=== PATIENT | male | born 1955 | race Caucasian/White ===

== ENCOUNTER → 2024-05-29 11:01 | Outpatient (REF) | payer MEDICARE, OTHER, SELFPAY | LOC: PAVMRI 11:01 | PROVIDERS: ATTENDING PHYSICIAN Orthopaedic Surgery Hand Surgery; FAMILY PHYSICIAN Family Medicine | DX: S63.642A Sprain of metacarpophalangeal joint of left thumb, initial encounter (principal) | CPT/HCPCS: 73218 ==

== ENCOUNTER 2024-06-03 09:50 | Emergency (ER) | payer MEDICARE, OTHER, SELFPAY ==
[2024-06-03 09:57] VITALS: BP 148/92
--- NOTE | 2024-06-03 10:16 | ED.GENMED ---
History of Present Illness
General
Chief Complaint: Breathing Problem
Time Seen by Provider: 06/03/24 10:15
History of Present Illness
History of Present Illness:
HPI: Patient was sent here by PMD as he was found to have hypoxia at the office down to 89% at times. The patient had been treated for presumed pneumonia with Augmentin and prednisone but symptoms continue to worsen.
EXAM:
GENERAL: Well appearing in no distress however cough is recurrent. Room air sats are 95 to 97% especially after coughing and taking breath in. I have not seen any true hypoxia here.
HEENT: Moist oral mucosa
CARDIOVASCULAR: No murmurs, normal heart rate, regular rhythm, No chest wall tenderness
PULMONARY: No respiratory distress, but he does have some inspiratory wheeze which is occasional in the lower lung caceres.
ABDOMEN: Soft with no peritoneal signs, no tenderness
NEUROLOGIC: Excellent strength all extremities, no coordination deficits
PSYCHIATRIC: Appropriate mental status, normal insight and judgement
EXTREMITIES: Nontender, no edema, moves all extremities equally
SKIN: No rash, no lesions
TIME OF INITIAL ENCOUNTER: 10:30 AM
NUMBER AND COMPLEXITY OF PROBLEMS ADDRESSED AT THE ENCOUNTER
� Chronic conditions affecting care: Asthma
� Acute Exacerbation and/or Progression of Chronic Illness: This is an acute problem
� Differential Diagnosis includes: Acute exacerbation of asthma, pneumonia, reactive airway disease, viral syndrome
AMOUNT AND/OR COMPLEXITY OF DATA TO BE REVIEWED AND ANALYZED
� I performed an independent evaluation of and my interpretation is:
EKG:
CT:
X-rays: I personally reviewed chest x-ray and see consolidation at the left and retrocardiac abnormality on the lateral view consistent with pneumonia
Laboratory Studies: White count 18.1, chemistries unremarkable, BNP 265
Other:
� Review of other/old records: I reviewed records. The patient had colonoscopies in 2017, 2019, 2022
� Clinical information was obtained by an independent historian: I reviewed the notes sent from Dr. Gato anderson [facility] indicating the patient has a history of asthma and was presumed to have pneumonia and has
been on Augmentin with prednisone and has been having worsening symptoms and was found to be hypoxic at the office.
� Prescriptions/Medications Considered but not given: Offered and considered IV steroids however the patient prefers to hold off at this time
� Further testing considered but not performed:
RISK OF COMPLICATIONS AND/OR MORBIDITY OR MORTALITY OF PATIENT MANAGEMENT
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
� Discussion with other providers: I discussed with Dr. Alamo who recommends, since we are going to discharge the patient, a quinolone. I also briefly spoke to Dr. Singh, radiologist.
� Escalation of care including admission/observation vs risk of discharge considered: The patient is given DuoNebs and IV magnesium. Chest x-ray obtained. White count is 18.1 likely at least partially elevated due to steroid
use recently. IV antibiotics were given here (Rocephin and azithromycin) and will discharge on oral Levaquin. The patient prefers outpatient management which I feel is reasonable. No evidence for heart failure.
Phy Exam
Physical Exam
Physical Exam:
See HPI
Scores
Heart Failure Risk
Heart Failure Risk Score: Not Applicable
Course
Orders/Labs/Results
Orders:
Orders
06/03/24 10:16
CR Chest - 2 Views Urgent
Comment:
Reason For Exam: sob asthma treated for pneumonia
06/03/24 10:26
Ipratropium/Albuterol Sulfate [Duoneb] 3 ml INH R NOW ONE
06/03/24 10:27
Magnesium Sulfate 2 Gram/50 ml [Magnesium Sulfate] 2 gram in 50 ml IV NOW
06/03/24 10:31
Basic Metabolic Panel Urgent
Complete Blood Count/With Diff Urgent
NT-proBNP Urgent
06/03/24 10:48
Azithromycin 500 mg/250 ml [Zithromax Infusion] 500 mg in 250 ml IV NOW
CefTRIAXone [Rocephin] 1,000 mg IV NOW STA
Abnormal Lab Results
06/03/24
10:31
WBC 18.1 H 10^3/uL
(4.8-10.8)
RBC 4.40 L 10^6/uL
(4.70-6.10)
MCH 32.5 H pg
(27.0-31.0)
Abs Immat Gran (auto) 0.6 H 10^3/uL
(0-0.05)
Absolute Neuts (auto) 16.2 H 10^3/uL
(1.4-6.5)
Absolute Lymphs (auto) 0.9 L 10^3/uL
(1.2-3.4)
Immature Gran % 3.4 H %
(0-0.5)
Neutrophils % 89.4 H %
(42.2-75.2)
Lymphocytes % 5.0 L %
(20.5-51.1)
Glucose 123 H mg/dl
(70-99)
06/03/24 10:31
06/03/24 10:31
Vital Signs
Initial and Last Documented VS:
Initial Vital Signs
Temp Pulse Resp BP Pulse Ox
98.3 F 67 20 148/92 94
06/03/24 09:57 06/03/24 09:57 06/03/24 09:57 06/03/24 09:57 06/03/24 09:57
Last Documented Vital Signs
Temp Pulse Resp BP Pulse Ox
98.3 F 85 30 131/88 94
06/03/24 09:57 06/03/24 12:15 06/03/24 12:15 06/03/24 12:00 06/03/24 12:15
*Critical Care Note
Total Time (30-74mins, 75-104mins- exclusive of procedures): Not Applicable
ED Attending Note
-
Portions of this chart may have been created with voice recognition software.� Occasional wrong word or��sound alike� substitutions may have occurred due to the inherent limitations of voice recognition software.
Discharge Plan
Departure
Patient Disposition: Home (Routine Discharge)
Date of Disposition: 06/03/24
Time of Disposition: 11:59
Patient with high blood pressure during this ER visit?: Yes
Discharge Problem:
Pneumonia
Prescriptions:
New
levofloxacin 500 mg tablet
500 mg PO DAILY 7 Days Qty: 7 0RF
No Action
amoxicillin-pot clavulanate [Augmentin] 875-125 mg Tablet
1 tab PO BID
prednisone 10 mg Tablets,Dose Pack
40 mg PO DIRECTED
Rx Instructions:
starting 06/01/24 take 40mg daily for 2 days then 30mg daily for 2 days then 20mg for 2 days then 10mg daily for 2 days then stop on 06/09/24
dextromethorphan-guaifenesin [Mucinex Fast-Max DM Max] 5-100 mg/5 mL Liquid
10 ml PO BIDPRN PRN (Reason: cough)
albuterol sulfate [ProAir HFA] 90 mcg/actuation Hfa Aerosol Inhaler
2 puff INHALATION R Q4HPRN PRN (Reason: sob)
Referrals:
Inocencio Swanson MD [Family Provider] -
Activity Restrictions/Additional Instructions:
Your white blood cell count is high at 18.1. This is partially contributed to by the use of steroids. We did give a dose of Rocephin and azithromycin. I spoke to an infectious disease specialist and she recommends a quinolone. I sent a
prescription for Levaquin to your pharmacy. I generally do not recommend taking steroids while on Levaquin due to the high risk of tendon rupture. Therefore I recommend against any further steroid.
Interventions
Interventions:
*Risk Screen - Suicide Last Done: 06/03/24 09:57
*General Assessment Last Done: 06/03/24 09:57
*Neglect/Abuse Screening Last Done: 06/03/24 09:57
ED- Fall Risk Assessment Last Done: 06/03/24 10:24
*ED COVID-19 Vaccine History Last Done: 06/03/24 09:57
*Nursing Disposition Last Done: 06/03/24 12:56
ED- Cardiac Assessment Last Done: 06/03/24 10:24
ED- Pulmonary Assessment Last Done: 06/03/24 10:24
Discharge Date and Time
Discharge Date/Time: 06/03/24 13:08
Print Language: RWANDAN
[2024-06-03 10:20] VITALS: BMI 24.7
[2024-06-03 10:23] VITALS: BP 142/93
[2024-06-03 10:24] VITALS: BP 142/93
[2024-06-03 10:40] LABS: % Basophils 0.4 % (0-2); % Immature Granulocytes 3.4 % (0-0.5); % Monocytes 1.8 % (1.7-9.3); % Neutrophils 89.4 % (42.2-75.2); Absolute Basophils 0.1 10^3/uL (0-0.2); Absolute Immature Granulocytes 0.6 10^3/uL (0-0.05); Absolute Lymphocytes 0.9 10^3/uL (1.2-3.4); Absolute Monocytes 0.3 10^3/uL (0.1-0.6); Absolute Neutrophils 16.2 10^3/uL (1.4-6.5); Hematocrit 40.4 % (39.0-52.0); Hemoglobin 14.3 g/dL (13.0-18.0); Mean Corp Hgb Conc. 35.4 g/dL (33.0-37.0); Mean Corpuscular Hgb 32.5 pg (27.0-31.0); Mean Corpuscular Volume 91.8 fL (80.0-94.0); Mean Platelet Volume 9.5 fL (7.4-10.4); Nucleated Red Blood Cells % 0 % (-); Platelet Count 400 10^3/uL (130-400); Red Cell Dist. Width 13.3 % (11.5-14.5); White Blood Cell Count 18.1 10^3/uL (4.8-10.8)
[2024-06-03] MEDS: MAGNESIUM SULFATE 50 IV (10:45)
[2024-06-03] MEDS: DUONEB 3 ML INH (10:45)
[2024-06-03 11:00] VITALS: BP 102/67
[2024-06-03 11:02] LABS: NT-proBNP 265 pg/ml
[2024-06-03 11:05] LABS: Blood Urea Nitrogen 13 mg/dl (9-20); Calcium 8.9 mg/dl (8.4-10.2); Carbon Dioxide 26 mmol/L (22-30); Chloride 105 mmol/L (98-107); Estimated Creatinine Clearance 121 ml/min; Glucose 123 mg/dl (70-99); Potassium 4.3 mmol/L (3.5-5.1); Sodium 136 mmol/L (135-145); eGFR > 60.00
[2024-06-03] MEDS: ROCEPHIN 1000 MG IV (11:22)
[2024-06-03] MEDS: ZITHROMAX INFUSION 250 IV (11:22)
[2024-06-03 12:00] VITALS: BP 131/88
== END 2024-06-03 13:08 | disposition home or self-care (01) ==
LOC: EMR 09:50
PROVIDERS: EMERGENCY PHYSICIAN Emergency Medicine; FAMILY PHYSICIAN Family Medicine
DX: R09.02 Hypoxemia (principal); J18.9 Pneumonia, unspecified organism
CPT/HCPCS: 99283; 94640; 96365; 96375; 71046; 80048; 83880; 85025

== ENCOUNTER 2024-06-05 22:50 | Observation (INO) | payer MEDICARE, OTHER, SELFPAY ==
[2024-06-05] VITALS (7 sets, daily range): BP systolic 130–160; BP diastolic 85–96; BMI 23.8; BMI 23.6
[2024-06-05] MEDS: NSS 500 IV (19:54)
[2024-06-05 20:01] LABS: % Basophils 0.5 % (0-2); % Eosinophils 0.1 % (0-6); % Immature Granulocytes 1.9 % (0-0.5); % Lymphocytes 10.9 % (20.5-51.1); % Neutrophils 82.6 % (42.2-75.2); Absolute Basophils 0.1 10^3/uL (0-0.2); Absolute Immature Granulocytes 0.3 10^3/uL (0-0.05); Absolute Lymphocytes 1.4 10^3/uL (1.2-3.4); Absolute Monocytes 0.5 10^3/uL (0.1-0.6); Hematocrit 41.3 % (39.0-52.0); Hemoglobin 14.8 g/dL (13.0-18.0); Mean Corp Hgb Conc. 35.8 g/dL (33.0-37.0); Mean Corpuscular Hgb 31.6 pg (27.0-31.0); Mean Corpuscular Volume 88.2 fL (80.0-94.0); Mean Platelet Volume 9.1 fL (7.4-10.4); Nucleated Red Blood Cells % 0 % (-); Platelet Count 469 10^3/uL (130-400); Red Blood Cell Count 4.68 10^6/uL (4.70-6.10); Red Cell Dist. Width 13.5 % (11.5-14.5); White Blood Cell Count 13.2 10^3/uL (4.8-10.8)
[2024-06-05 20:19] LABS: Blood Urea Nitrogen 10 mg/dl (9-20); Calcium 8.8 mg/dl (8.4-10.2); Carbon Dioxide 24 mmol/L (22-30); Chloride 103 mmol/L (98-107); Estimated Creatinine Clearance 121 ml/min; Glucose 102 mg/dl (70-99); Potassium 4.4 mmol/L (3.5-5.1); Sodium 134 mmol/L (135-145); eGFR > 60.00
--- NOTE | 2024-06-05 20:30 | ED.GENMED ---
Addendum entered and electronically signed by Jairon Valdes MD 06/05/24 21:35:
EKG normal sinus rhythm at 69. Left axis deviation. Nonspecific changes. No QT prolongation
Original Note:
History of Present Illness
General
Chief Complaint: Breathing Problem
Source: patient
Exam Limitations: none
Time Seen by Provider: 06/05/24 19:23
History of Present Illness
History of Present Illness:
68-year-old male returns with ongoing shortness of breath cough general fatigue weakness lightheadedness. Started getting ill about a week ago in [place]. Was placed on Augmentin initially. Changed to a quinolone. Pneumonia diagnosed by x-ray
here. Symptoms have not improved.
Past History
Past History
ED Past Medical History: Asthma
ED Past Surgical History: Appendectomy and Orthopedic
Review of Systems
Review of Systems
All Other Systems: Not applicable
Constitutional: Denies chills
Respiratory: Reports cough and trouble breathing
Cardiac: Denies chest pain or syncope
Phy Exam
Physical Exam
Physical Exam:
GENERAL: Alert and oriented in no apparent distress
EYE: Orbits normal.
NECK: Supple, no significant adenopathy.
ENT: Pharynx without erythema
CARDIAC: Regular rate and rhythm without any obvious murmurs.
LUNGS: Clear breath sounds,normal
ABDOMEN: Soft, without focal tenderness or distention
NEUROLOGICAL: Alert and oriented , grossly non-focal
SKIN: Warm and dry, no rash or lesion, no discoloration, skin intact.
MUSCULOSKELETAL: No edema,no deformity.Good color
PSYCH: Normal and appropriate interaction.
Scores
Heart Failure Risk
Heart Failure Risk Score: Not Applicable
Course
Orders/Labs/Results
Orders:
Orders
06/05/24 19:39
CT Chest Pe Study Urgent
Comment:
Reason For Exam: Short of breath.
Cardiac Monitoring- Treatment ONCE
IV Insert/Care/Rem.- Treatment PRN
0.9% Sodium Chloride 500 ml [Nss] 500 ml IV BOLUS
Pulse Ox/cont/shift [RESP] Stat
Quantity: 1
06/05/24 19:52
Basic Metabolic Panel Urgent
Complete Blood Count/With Diff Urgent
Abnormal Lab Results
06/05/24
19:52
WBC 13.2 H 10^3/uL
(4.8-10.8)
RBC 4.68 L 10^6/uL
(4.70-6.10)
MCH 31.6 H pg
(27.0-31.0)
Plt Count 469 H 10^3/uL
(130-400)
Abs Immat Gran (auto) 0.3 H 10^3/uL
(0-0.05)
Absolute Neuts (auto) 11.0 H 10^3/uL
(1.4-6.5)
Immature Gran % 1.9 H %
(0-0.5)
Neutrophils % 82.6 H %
(42.2-75.2)
Lymphocytes % 10.9 L %
(20.5-51.1)
Sodium 134 L mmol/L
(135-145)
Glucose 102 H mg/dl
(70-99)
06/05/24 19:52
06/05/24 19:52
Vital Signs
Initial and Last Documented VS:
Initial Vital Signs
Temp Pulse Resp BP Pulse Ox
99.2 F 77 18 160/96 96
06/05/24 18:36 06/05/24 18:36 06/05/24 18:36 06/05/24 18:36 06/05/24 18:36
Last Documented Vital Signs
Temp Pulse Resp BP Pulse Ox
98.2 F 72 21 130/85 95
06/05/24 20:00 06/05/24 20:00 06/05/24 20:00 06/05/24 20:00 06/05/24 20:00
MDM/Problems Addressed
Differential Diagnosis Includes:
Concern mostly for a unresolved pneumonia. However with the long trip and lack of resolution with at least entertain atypical pulmonary emboli. CT scan pending.
*Radiology
Radiology exam reviewed: radiology read reviewed (Moderate bibasilar and lingular and mild left upper lobe pneumonia)
*Pulse Oximetry
Patient hypoxic: no
*Critical Care Note
Total Time (30-74mins, 75-104mins- exclusive of procedures): Not Applicable
Data Reviewed
Review of Other/Old Records Reveals: Labs, Records and Radiology Studies
Update Note
Update Note:
Patient on multiple outpatient regimens without improvement. Warrants inpatient management
ED Attending Note
-
Portions of this chart may have been created with voice recognition software.� Occasional wrong word or��sound alike� substitutions may have occurred due to the inherent limitations of voice recognition software.
Discharge Plan
Departure
Patient Disposition: Admit
Date of Disposition: 06/05/24
Time of Disposition: 21:18
Presentation/result/management discussed w/ accepting MD/DO: Hospitalist
Discharge Problem:
Persistent multilobar pneumonia, Failed outpatient management
Prescriptions:
No Action
albuterol sulfate [ProAir HFA] 90 mcg/actuation Hfa Aerosol Inhaler
2 puff INHALATION R Q4HPRN PRN (Reason: sob)
levofloxacin 500 mg tablet
500 mg PO DAILY 7 Days Qty: 7 0RF
Referrals:
Inocencio Swanson MD [Family Provider] -
Interventions
Interventions:
*Risk Screen - Suicide Last Done: 06/05/24 18:36
*General Assessment Last Done: 06/05/24 18:36
*Neglect/Abuse Screening Last Done: 06/05/24 18:36
ED- Fall Risk Assessment Last Done: 06/05/24 19:57
ED- Cardiac Assessment Last Done: 06/05/24 19:57
ED- Pulmonary Assessment Last Done: 06/05/24 19:57
Discharge Date and Time
Print Language: KYRGYZ
--- NOTE | 2024-06-05 21:27 | HPS.HSE ---
Family Physician
-
Family Physician: Inocencio Swanson
Chief Complaint
-
Cough, sore throat, headache x 13 days
History of Present Illness
68-year-old male with his Kerline at bedside who states they flew to [place] May 15 to May 26 to visit their children and grandchildren. His states she started getting sick with a headache, sore throat, cough approximately around May
16. And her was sick approximate around May 15 with the same symptoms. They state that their 1-year-old granddaughter had a runny nose with a cough was seen at urgent care and only had her ear checked. She was not checked for any viral
panel. Patient reports on May 27 upon returning home he was seen by PCP and placed on a 10-day course of Augmentin starting May 27. He states this did not improve his symptoms of cough, sore throat and headache. He then was placed on Levaquin 3
days ago. He states he was tested on the and on Saturday, June 01 and was COVID-negative. His also has persistent symptoms she is day 15. Patient denies blurred vision, chest pain, palpitations, shortness of breath, abdominal pain,
nausea, vomiting, diarrhea, urinary symptoms. He has past medical history of reported asthma he does not treat
Medical History
Past Medical History
Past Medical History: Reports Other
Additional Past Medical History:
Asthma�patient does not treat history of hospitalizations or intubations or use of inhaler
Past Surgical History: Reports Other
Additional Past Surgical History:
Appendectomy
Bilateral inguinal hernia repair
Right ankle repair
Right shoulder repair
Multiple knee arthroscopies
Social History
Tobacco: Non-smoker
Alcohol: Occasional
Drug: None
Personal:
Living: With Family ( Kerline)
Employment: Retired
Family History
Family History: Other (Mother age 75 [place] father prostate cancer)
Allergies / Home Medications
Allergies reflects when Allergies were last updated in [employer]
Home Medications with original date entered in [employer]
Allergy/Medication List:
Allergies
Allergy/AdvReac Type Severity Reaction Status Date / Time
meperidine HCl [From Demerol] Allergy Nausea / Verified 06/03/24 09:57
Vomiting
Home Medications
albuterol sulfate 90 mcg/actuation aerosol inhaler 2 puff inhalation R Q4HPRN PRN sob 06/03/24
levofloxacin 500 mg tablet 500 mg PO DAILY 7 days #7 tabs 06/03/24
Review of Systems
-
History Source: Patient and Family ( Kerline at bedside)
A 12 point ROS was completed and negative except as noted: Yes
Constitutional: Reports Chills; Denies Weight Loss, Fatigue or Night Sweats
EENT: Reports Sore Throat
Respiratory: Reports Cough (Productive clear in color); Denies Hemoptysis or Trouble Breathing
Cardiac: Denies Chest Pain, Diaphoresis, Palpitations or Syncope
Abdomen/GI: Denies Abdominal Pain, Nausea, Vomiting, Diarrhea, Constipated or Bloody Stools
: Denies Dysuria, Frequency, Flank Pain, Incontinence, Difficulty Voiding or Urgency
Musculoskeletal: Denies Joint Pain or Edema
Skin: Denies Itching or Rash
Neurological: Reports Headache; Denies Dizzy or Weakness
Endocrine: Reports No Symptoms
Hematologic/Lymphatic: Reports No Symptoms
Psych: Reports Calm
Physical Exam
Vital Signs
Vital Signs
Temp Pulse Resp BP Pulse Ox
98.2 F 72 18 150/89 95
06/05/24 20:00 06/05/24 21:15 06/05/24 21:15 06/05/24 21:07 06/05/24 21:15
Physical Exam
General: Comfortable and Conversant; No Pain, Fever or Chills
HEENT: NormoCephalic, Anicteric, Tracheostomy Collar, PERRLA, [place] Conjunctivae, No Ptosis and Neck Nontender (No nuchal rigidity)
Respiratory: Clear; No Wheezes, Rales or Rhonchi
Cardiac: S1/S2 and Regular Rhythm; No Murmur, Rub, Gallop or Peripheral Edema
Breast: Deferred by me
GI: Soft, Non Tender, Non Distended, Normal Bowel Sounds and No Hepatosplenomegaly
Genito-urinary: Deferred by me
Musculoskeletal: No Clubbing, No Cyanosis and No Edema
Skin: Warm and Dry; No Rash
Neuro: AO x 3, No Motor Deficits, Nonfocal/grossly intact, Cranial Nerves Intact and No Sensory Deficits; No Slurred Speech, Facial Droop or Tremors
Psych: Calm
Laboratory Results
-
06/05/24 19:52
06/05/24 19:52
Data Reviewed
-
CT Scan: Report Reviewed by me
Lab Data: Labs Reviewed by me
Impression/Plan
-
Impression/plan:
Admit to MedSurg
#Bibasilar/lingular/left upper lobe pneumonia concern for viral versus bacterial
WBC 13.2 with left shift down from 18.1 on 06/03/2024, afebrile, HR 72, 150/89
95% RA
Completed 10-day course of Augmentin 875 plus prednisone 40 mg x 2, 30 x 2, 20 x 2, 10 x 2 then stop date 06/09
-Completed Levaquin 500 mg x 3 doses so far
-Continue inhaler scheduled and as needed
-Check COVID swab, MRSA, RSV, strep, Legionella
-IV Rocephin, doxycycline 100 mg p.o. every 12 hours
-Tylenol as needed headache, Mucinex 600 twice daily cough, Cepacol lozenges
-Follow CBC, CMP
CT PE study:
No evidence of PE
Findings suggesting moderate bibasilar and lingular/mild left upper lobe pneumonia
#Asthma-reported
-Patient states he does not use his inhaler not even when he is sick
DVT prophylaxis
Subcu Lovenox
Full code
[2024-06-05] MEDS: ZITHROMAX INFUSION 250 IV (21:41)
[2024-06-05] MEDS: ROCEPHIN 1000 MG IV (21:41)
--- NOTE | 2024-06-05 21:45 | W.PN.UPDATE ---
Update Note
Progress Note Update
This is an addendum to the H&P written by Rhea Tang on 06/05/2024. Patient seen and examined independently with SNAP [employer].
68-year-old male past medical history of asthma presenting with ongoing shortness of breath, cough generalized fatigue treated with Augmentin and prednisone initially on 05/27 changed to Levaquin on 06/03 after pneumonia found on chest x-ray in the
emergency room. Multiple sick contacts including and granddaughter.
CT chest today shows findings suggesting moderate bibasilar and lingular and mild left upper lobe pneumonia. Likely viral pneumonia. Check COVID. Check sputum culture, strep antigen, RSV, Legionella antigen, MRSA. ceftriaxone/doxycycline.
[2024-06-05 22:06] LABS: COVID-19 Antigen Negative (Negative)
[2024-06-05] MEDS: TYLENOL 650 MG PO (23:42)
[2024-06-06 07:46] VITALS: BP 148/86
--- NOTE | 2024-06-06 08:32 | W.PN.HOSP.TC ---
Today's Communication/Plan
-
Continue Rocephin/Doxy
Consult pulmonology
Assessment / Plan
Assessment / Plan
HPI: 68-year-old male with his Kerline at bedside who states they flew to [place] May 15 to May 26 to visit their children and grandchildren. His states she started getting sick with a headache, sore throat, cough approximately around
May 19. And her was sick approximate around May 15 with the same symptoms. They state that their 1-year-old granddaughter had a runny nose with a cough was seen at urgent care and only had her ear checked. She was not checked for any
viral panel. Patient reports on May 27 upon returning home he was seen by PCP and placed on a 10-day course of Augmentin starting May 27. He states this did not improve his symptoms of cough, sore throat and headache. He then was placed on
Levaquin 3 days ago. He states he was tested on the and on Saturday, June 01 and was COVID-negative.
#Persistent dyspnea with activity
#Left upper lobe pneumonia on CT
Symptoms persist despite a course of Augmentin, and 3 days of Levaquin prior to admission
COVID-negative, RSV negative, strep/Legionella negative
Check procalcitonin, consult pulmonology, follow-up on sputum cultures
Continue Rocephin/doxycycline for now
#History of asthma
Has not needed his inhaler
DVT prophylaxis�subcu Lovenox
Full code
Total time spent to see the patient on the floor, examine the patient, review data and lab results, discuss treatment plan with patient, nursing staff around 35 minutes.
Physical Exam
General: No acute distress
HEENT: Normocephalic, Atraumatic, EOMI, MMM
Respiratory: Clear to Auscultation bilaterally
Cardiac: Normal S1/S2, Regular Rate and Rhythm
GI: Soft, Nontender, Nondistended, Normal Bowel Sounds
Extremities: No Clubbing, Cyanosis, or Edema
Neuro: Nonfocal/Grossly Intact
Psych: Calm, Cooperative
Derm: No Visible lesions
Anticipated Discharge: Within 24 hours
Subjective/Interval History
-
Date of Service: June 06, 2024
Patient reports continued dyspnea with activity. He continues to have a cough. No fever.
Objective Data
-
Labs:
Laboratory Results
06/06/24
06:52
WBC Pending
Hgb Pending
Hct Pending
Plt Count Pending
Sodium Pending
Potassium Pending
Chloride Pending
Carbon Dioxide Pending
BUN Pending
Creatinine Pending
Glucose Pending
Calcium Pending
Total Bilirubin Pending
AST Pending
ALT Pending
Alkaline Phosphatase Pending
Vital Signs:
Vital Signs
Temp Pulse Resp BP Pulse Ox
98.4 F 70 17 148/86 96
06/06/24 07:46 06/06/24 07:46 06/06/24 07:46 06/06/24 07:46 06/06/24 07:46
[2024-06-06] MEDS: VIBRAMYCIN 100 MG PO ×2 (08:57→21:05)
[2024-06-06 09:31] LABS: % Basophils 0.8 % (0-2); % Eosinophils 0.8 % (0-6); % Immature Granulocytes 2.3 % (0-0.5); % Lymphocytes 22.3 % (20.5-51.1); % Monocytes 5.6 % (1.7-9.3); % Neutrophils 68.2 % (42.2-75.2); Absolute Basophils 0.1 10^3/uL (0-0.2); Absolute Eosinophils 0.1 10^3/uL (0-0.7); Absolute Immature Granulocytes 0.2 10^3/uL (0-0.05); Absolute Lymphocytes 1.9 10^3/uL (1.2-3.4); Absolute Monocytes 0.5 10^3/uL (0.1-0.6); Absolute Neutrophils 5.7 10^3/uL (1.4-6.5); Hematocrit 40.6 % (39.0-52.0); Mean Corp Hgb Conc. 34.5 g/dL (33.0-37.0); Mean Corpuscular Hgb 31.7 pg (27.0-31.0); Mean Corpuscular Volume 91.9 fL (80.0-94.0); Mean Platelet Volume 9.5 fL (7.4-10.4); Nucleated Red Blood Cells % 0 % (-); Platelet Count 436 10^3/uL (130-400); Red Blood Cell Count 4.42 10^6/uL (4.70-6.10); Red Cell Dist. Width 13.4 % (11.5-14.5); White Blood Cell Count 8.3 10^3/uL (4.8-10.8)
[2024-06-06 09:35] LABS: ALT (SGPT) 49 U/L (0-50); AST (SGOT) 33 U/L (17-59); Albumin 3.1 g/dl (3.5-5.0); Alkaline Phosphatase 145 U/L (38-126); Blood Urea Nitrogen 13 mg/dl (9-20); Calcium 8.3 mg/dl (8.4-10.2); Carbon Dioxide 26 mmol/L (22-30); Chloride 103 mmol/L (98-107); Estimated Creatinine Clearance 105 ml/min; Glucose 84 mg/dl (70-99); Potassium 4.2 mmol/L (3.5-5.1); Sodium 137 mmol/L (135-145); Total Bilirubin 0.6 mg/dl (0.2-1.3); Total Protein 5.7 g/dl (6.3-8.2); eGFR > 60.00
[2024-06-06 10:19] VITALS: BP 135/91; BP 144/99; PULSE 75; O2SAT 98
[2024-06-06 10:23] VITALS: BP 144/99; PULSE 73; O2SAT 98
--- NOTE | 2024-06-06 10:33 | CON.PUL ---
Consultation
Consultation Request
Date/Time Consultation Requested: 06/06/2024 - 1013
Date/Time Consultation Performed: 06/06/2024 - 1104
Requesting Provider: Dr. Chan
Performing Provider: Dr. Curry
Reason for Consultation: Multifocal PNA
Medical History
-
Chief Complaint: Weakness, cough, dyspnea on exertion
History of Present Illness:
68-year-old male with a past medical history of asthma who presented with weakness, cough and dyspnea on exertion. He was recent diagnosed with pneumonia on 06/03/2024 when he came here to the ER and found to be hypoxic down to 89%. He had been
treated at that time for pneumonia with Augmentin and prednisone but symptoms worsened. CXR at that time showed left lower lobe consolidation, and his WBC was 18.1 with platelets 123 and he was afebrile and hemodynamically stable with saturation
94%. He was sent home with Levaquin for 7 days after giving Rocephin + azithromycin in the ER. When patient came back to the ER on 06/05, he remained afebrile at 99.2 �F, pulse rate 77, breathing at 18 breaths/min, BP 160/96 and saturating 96% on
room air. Labs showed leukocytosis to 13.2, platelet count 469, sodium 134, glucose 102 with negative RSV. CTA chest showed bibasilar, lingular, and left upper lobe pneumonia. He was given ceftriaxone, Zithromax, IVF with 500 cc bolus of NS 0.9%
and admitted to the hospitalist service. Pulmonary now consulted for additional management/recommendations.
When I saw the patient, he was on room air breathing comfortably with , Kerline, at bedside. Patient currently denies shortness of breath, still feeling lightheaded with walking. Coughing up thin secretions. Denies CP, CARTWRIGHT, abd pain,
N/V/D/C/f/c.
PMHx: History of asthma
PSHx: Appendectomy, bilateral inguinal hernia repair, right ankle repair, right shoulder repair, multiple knee arthroscopies
Past Medical History
Past Medical History: Other (Above as per HPI)
Past Surgical History: Other (Above as per HPI)
Social History
Tobacco: Non-smoker
Alcohol: Occasional
Drug: None
Personal:
Living: With Family
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
Family History
Family History: CAD (Mother: at age 75 of [place]) and Cancer (Father: History of prostate cancer)
Allergies / Home Medications
Allergies
Allergy/AdvReac Type Severity Reaction Status Date / Time
meperidine HCl [From Demerol] Allergy Nausea / Verified 06/03/24 09:57
Vomiting
Home Medications
�Medication �Instructions �Recorded �Confirmed �Last Taken �Type
albuterol sulfate 90 mcg/actuation 2 puff inhalation R Q4HPRN PRN sob 06/03/24 06/05/24 06/05/24 History
aerosol inhaler
levofloxacin 500 mg tablet 500 mg PO DAILY 7 days #7 tabs 06/03/24 06/05/24 06/05/24 Rx
Review of Systems
-
History Source: Patient
All other systems: Negative unless noted (12 point ROS performed and is negative unless mentioned above.)
Vitals / Labs / Diagnostic Testing
Vital Signs
Temp Pulse Resp BP Pulse Ox
98.4 F 70 17 148/86 96
06/06/24 07:46 06/06/24 07:46 06/06/24 07:46 06/06/24 07:46 06/06/24 07:46
Lab Data
06/06/24 06:52
06/06/24 06:52
Microbiology
06/05/24 22:02 Urine Legionella Urinary Antigen - Final
Negative for Legionella pneumophila Serogroup 1 antigen.
A negative result does not rule out the possiblity of
Legionella infection due to other serogroups or species of
Legionella. Clinical correlation is recommended.
06/05/24 22:02 Urine Streptococcus pneumoniae Antigen (M - Final
Negative for Streptococcus pneumoniae antigen.
A negative result does not exclude infection with
Streptococcus pneumoniae. Clinical correlation is
recommended.
06/05/24 22:05 Nasal Swab Respiratory Syncytial Virus Culture - Final
Negative for Respiratory Syncytial Virus.
A false negative result may be obtained with a specimen
collected early in the acute phase. If symptoms persist, a
new specimen should be tested.
Diagnostic Testing:
Physical Exam
-
HEENT: Normocephalic, Anicteric and Moist Mucous Membranes
Cardiovascular: S1/S2 and Peripheral Edema (Negative)
Respiratory: Wheeze (Negative), Rales (Bibasilar), Rhonchi (Left hemithorax) and Non-Labored Respirations
GI: Soft, Non Distended and Non Tender
Neurology: AO x 3 and Tremors (Negative)
Skin: Warm and Dry
General: Respiratory Distress (Negative), Comfortable, Chills (Negative) and Sweats (Negative)
Assessment
-
Assessment: 68-year-old male with PMhx of asthma who presented with weakness, cough and dyspnea on exertion. He was recent diagnosed with pneumonia on 06/03/2024 when he came here to the ER and found to be hypoxic down to 89%. He had been treated
at that time for pneumonia with Augmentin and prednisone but symptoms worsened. CXR at that time showed left lower lobe consolidation, and his WBC was 18.1 with platelets 123 and he was afebrile and hemodynamically stable with saturation 94%. He
was sent home with Levaquin for 7 days after giving Rocephin + azithromycin in the ER. When patient came back to the ER on 06/05, he remained afebrile at 99.2 �F, pulse rate 77, breathing at 18 breaths/min, BP 160/96 and saturating 96% on room air.
Labs showed leukocytosis to 13.2, platelet count 469, sodium 134, glucose 102 with negative RSV. CTA chest showed bibasilar, lingular, and left upper lobe pneumonia. He was given ceftriaxone, Zithromax, IVF with 500 cc bolus of NS 0.9% and
admitted to the hospitalist service. Pulmonary now consulted for additional management/recommendations.
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
Impression:
#Multifocal pneumonia/CAP with suspected preceding viral illness
#Cough + generalized weakness due to above
#Leukocytosis likely due to recent course of steroids � leukocytosis now resolved
#History of mild intermittent asthma
Plan:
- Suspect his cough is post-infectious and dyspnea on exertion with generalized weakness is due to continued symptoms of newly diagnosed multifocal pneumonia
- Continue with antibiotics and will treat for 7 days total since his current hospitalization
- Patient currently on doxycycline/ceftriaxone, both started 06/05/2024
- Supportive care with acetaminophen, antitussives as needed, Mucinex prn + prn nebulized bronchodilators
- If cough is bothersome then would start him on LABA/ICS until symptoms resolved -he currently says that his cough is not bothersome and he is not even short of breath, hence can hold off on starting maintenance inhaler at this time and reassess
daily
- Considering he is having nonsevere CAP, no current recommendation for steroids
- Maintain SpO2 >90-94% with supplemental O2 as needed
- Incentive spirometer encouraged
- Replete electrolytes with K>4, Mg>2
- Maintain euglycemia with goal BG >100 and <180
- DVT ppx
Pulmonary service will continue to follow along. I will arrange for outpatient follow-up. He needs to obtain repeat imaging with CT chest in about 6 weeks to follow-up pneumonia resolution.
Total time spent today was 55 minutes for this encounter. Time includes reviewing laboratory test/imaging results, reviewing pertinent medical records, obtaining and reviewing medical history, performing an appropriate exam, ordering medications,
tests and procedures. Time also includes documentation of this encounter, coordinating patient care and communicating with other healthcare professionals. Total time does not include separately billed tests performed on this date of service.
--- NOTE | 2024-06-06 11:00 | CM ---
CM following re: discharge planning.
Reviewed pt's chart, met with pt.
Pt is a 68 year old male, admitted with OBS status and primary dx of Bibasilar/lingular/left upper lobe pneumonia concern for viral versus bacterial. OBS status explained to the pt, pt expressed to me his disappointed and very unhappy feelings,
signed [facility] letter placed on chart, pt has a copy.
Pt reports he lives with spouse in a 2SH, 2 steps to enter, has 3 supportive children. Pt described himself as independent in all areas [employer]. No DME, VN or SNF history.
PCP: Inoc[facility] Sw[facility]
Pharmacy: [facility]
D/C plan: home with anticipated no needs. Family to transport at discharge.
CM will follow with discharge plan updates as hospitalization progresses
[2024-06-06 11:58] LABS: Procalcitonin < 0.05 ng/ml (0.0-0.25)
[2024-06-06] MEDS: ProAIR HFA INHALER 2 PUFF INH (15:19)
[2024-06-06 15:40] VITALS: BP 146/93
[2024-06-06] MEDS: LOVENOX 40 MG SC (17:20)
[2024-06-06] MEDS: ROCEPHIN 1000 MG IV (21:05)
[2024-06-06] MEDS: STERILE WATER FOR INJECTION 10 ML IV (21:06)
[2024-06-06 23:00] VITALS: BP 128/67
[2024-06-07 07:30] VITALS: BP 139/86
[2024-06-07] MEDS: VIBRAMYCIN 100 MG PO ×2 (08:38→19:40)
--- NOTE | 2024-06-07 08:39 | W.PN.HOSP.TC ---
Today's Communication/Plan
-
see bold
Assessment / Plan
Assessment / Plan
HPI: 68-year-old male with his Kerline at bedside who states they flew to [place] May 15 to May 26 to visit their children and grandchildren. His states she started getting sick with a headache, sore throat, cough approximately around
May 19. And her was sick approximate around May 15 with the same symptoms. They state that their 1-year-old granddaughter had a runny nose with a cough was seen at urgent care and only had her ear checked. She was not checked for any
viral panel. Patient reports on May 27 upon returning home he was seen by PCP and placed on a 10-day course of Augmentin starting May 27. He states this did not improve his symptoms of cough, sore throat and headache. He then was placed on
Levaquin 3 days ago. He states he was tested on the and on Saturday, June 01 and was COVID-negative.
#Persistent dyspnea with activity
#Left upper lobe pneumonia on CT
Was seen and discharged from the ER on 06/03, came back to the ER on 06/05
Symptoms persist despite a course of Augmentin, and 3 days of Levaquin prior to admission
COVID-negative, RSV negative, strep/Legionella negative. Procalcitonin negative
Appreciate pulmonology input, continue Rocephin/doxycycline day 3
Patient continues to be symptomatic, discussed with pulmonology who will assess today and offer steroids
#Lightheadedness with standing
Orthostatics negative
#History of asthma
Has not needed his inhaler
DVT prophylaxis�subcu Lovenox
Full code
Total time spent to see the patient on the floor, examine the patient, review data and lab results, discuss treatment plan with patient, nursing staff around 40 minutes.
Physical Exam
General: No acute distress
HEENT: Normocephalic, Atraumatic, EOMI, MMM
Respiratory: Clear to Auscultation bilaterally
Cardiac: Normal S1/S2, Regular Rate and Rhythm
GI: Soft, Nontender, Nondistended, Normal Bowel Sounds
Extremities: No Clubbing, Cyanosis, or Edema
Neuro: Nonfocal/Grossly Intact
Psych: Calm, Cooperative
Derm: No Visible lesions
Anticipated Discharge: Within 24 hours
Subjective/Interval History
-
Date of Service: June 07, 2024
Patient continues to have dyspnea with activity, lightheadedness with standing, cough, malaise. No fever.
Objective Data
-
Vital Signs:
Vital Signs
Temp Pulse Resp BP Pulse Ox
97.8 F 72 18 128/67 96
06/06/24 23:00 06/06/24 23:00 06/06/24 23:00 06/06/24 23:00 06/06/24 23:00
I&O
06/06/24 06/07/24 06/08/24
06:59 06:59 06:59
Intake Total 1740 / 1740
Balance 1740 / 1740
--- NOTE | 2024-06-07 09:24 | PTCARENOTE ---
pt aaox3. states no pain or sob. room air breath sounds clear.
[2024-06-07 10:07] VITALS: BP 115/79; BP 121/79; BP 127/75; PULSE 76; PULSE 78; PULSE 81
--- NOTE | 2024-06-07 11:27 | W.PN.PUL3 ---
Today's Communication / Plan
-
Start prednisone at 50 mg daily for suspected organizing pneumonia
Discharge home on 50 mg daily with PCP prophylaxis with Bactrim DS tab TIW
Outpatient follow-up with full PFTs and repeat imaging in about [address] chest without contrast
Consider LABA/ICS if cough is bothersome
I suspect he will be appropriate for discharge by tomorrow assuming blood glucose is not severely elevated and he feels improved
Pulmonary service will continue to follow along
Assessment
-
Assessment: 68-year-old male with PMhx of asthma who presented with weakness, cough and dyspnea on exertion. He was recent diagnosed with pneumonia on 06/03/2024 when he came here to the ER and found to be hypoxic down to 89%. He had been treated
at that time for pneumonia with Augmentin and prednisone but symptoms worsened. CXR at that time showed left lower lobe consolidation, and his WBC was 18.1 with platelets 123 and he was afebrile and hemodynamically stable with saturation 94%. He
was sent home with Levaquin for 7 days after giving Rocephin + azithromycin in the ER. When patient came back to the ER on 06/05, he remained afebrile at 99.2 �F, pulse rate 77, breathing at 18 breaths/min, BP 160/96 and saturating 96% on room air.
Labs showed leukocytosis to 13.2, platelet count 469, sodium 134, glucose 102 with negative RSV. CTA chest showed bibasilar, lingular, and left upper lobe pneumonia. He was given ceftriaxone, Zithromax, IVF with 500 cc bolus of NS 0.9% and
admitted to the hospitalist service. Pulmonary now consulted for additional management/recommendations.
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
Impression:
#Multifocal pneumonia/CAP with suspected preceding viral illness; unable to rule out organized pneumonia given patient continues to have FAN + malaise with procalcitonin <0.05
#Cough + generalized weakness due to above
#Leukocytosis likely due to recent course of steroids � leukocytosis now resolved as of 06/06/2024
#History of mild intermittent asthma
Plan:
- Considering that patient has been on antibiotics but with continued symptoms and with shortness of breath with activity and malaise despite being on antibiotics with negative procalcitonin, it is quite possible that he has organizing pneumonia.
This is further justified with patchy airspace consolidation/patchy groundglass opacities, with bronchial wall thickening and thick consolidation seen in the bases, which is quite often seen in [employer]ARE[employer]ODUCTION WORK[employer].
- I will start him on prednisone 50mg daily (IBW: 59.2 kg), and he should maintain this dose for several weeks (at least 3-4) before gradually transitioning down further to 0.25mcg/kg of ideal body weight with slow taper
- He will need PCP prophylaxis with bactrim 1 DS tab MWF while on steroids
- I originally had suspected his cough was post-infectious and dyspnea on exertion with generalized weakness was due to continued symptoms of newly diagnosed multifocal pneumonia
- I do not see harm in continuing antibiotics to treat for 7 days total since his current hospitalization
- Patient currently on doxycycline/ceftriaxone, both started 06/05/2024
- Supportive care with acetaminophen, antitussives as needed, Mucinex prn + prn nebulized bronchodilators
- If cough is bothersome then would start him on LABA/ICS until symptoms resolved -on 06/06 he said his cough is not bothersome and was not even short of breath, but as of today (06/07) he is more symptomatic; re-assess daily
- Maintain SpO2 >90-94% with supplemental O2 as needed
- Incentive spirometer encouraged
- Replete electrolytes with K>4, Mg>2
- Maintain euglycemia with goal BG >100 and <180
- DVT ppx
Pulmonary service will continue to follow along. I will arrange for outpatient follow-up. He needs to obtain repeat imaging with CT chest in about 6 weeks to follow-up pneumonia resolution.
Total time spent today was 35 minutes for this encounter. Time includes reviewing laboratory test/imaging results, reviewing pertinent medical records, obtaining and reviewing medical history, performing an appropriate exam, ordering medications,
tests and procedures. Time also includes documentation of this encounter, coordinating patient care and communicating with other healthcare professionals. Total time does not include separately billed tests performed on this date of service.
Subjective Data
-
Date of Service:
Date of Service: June 07, 2024
Chief Complaint: Pulmonary Follow Up
Subjective:
Patient seen and evaluated today at bedside. On room air breathing comfortably although had dizziness earlier today as well as shortness of breath and malaise. Patient's at bedside and all questions were answered. He currently denies chest
pain, headache, abdominal pain, fevers or chills.
Review of Systems
General: Other (Negative unless mentioned above)
Objective Data
Data Reviewed
Vital Signs / I&O / Oxygen:
Vital Signs
Temp Pulse Resp BP Pulse Ox
97.6 F 63 16 139/86 98
06/07/24 07:30 06/07/24 07:30 06/07/24 07:30 06/07/24 07:30 06/07/24 07:30
Intake and Output
06/06/24 06/07/24 06/08/24
06:59 06:59 06:59
Intake Total 1740 / 1740
Balance 1740 / 1740
SaO2 98
Physical Exam
General: Respiratory Distress (Negative) and Comfortable
HEENT: Normocephalic and Anicteric
Cardiovascular: S1-S2 and Peripheral Edema (Negative)
Respiratory: Wheeze (Negative), Crackles (Bibasilar), Rhonchi (Right hemithorax (RLL/RML >RUL) heard mainly upon expiration) and Non-Labored Respirations
GI: Soft, Non Distended, Non Tender and Normal Bowel Sounds
Neurology: AO x 3 and Tremors (Negative)
Skin: Warm, Dry and Jaundice (Negative)
Labs/Micro/Reports
Lab Data
06/06/24 06:52
06/06/24 06:52
Microbiology
06/06/24 06:26 Nose MRSA Screen - Final
No Methicillin Resistant Staphylococcus aureus isolated.
06/05/24 23:03 Sputum Respiratory Culture - Final
06/05/24 23:03 Sputum Gram Stain - Final
06/05/24 22:02 Urine Legionella Urinary Antigen - Final
Negative for Legionella pneumophila Serogroup 1 antigen.
A negative result does not rule out the possiblity of
Legionella infection due to other serogroups or species of
Legionella. Clinical correlation is recommended.
06/05/24 22:02 Urine Streptococcus pneumoniae Antigen (M - Final
Negative for Streptococcus pneumoniae antigen.
A negative result does not exclude infection with
Streptococcus pneumoniae. Clinical correlation is
recommended.
06/05/24 22:05 Nasal Swab Respiratory Syncytial Virus Culture - Final
Negative for Respiratory Syncytial Virus.
A false negative result may be obtained with a specimen
collected early in the acute phase. If symptoms persist, a
new specimen should be tested.
[2024-06-07] MEDS: ProAIR HFA INHALER 2 PUFF INH (13:34)
[2024-06-07] MEDS: TYLENOL 650 MG PO (14:41)
[2024-06-07 16:00] VITALS: BP 134/82
[2024-06-07] MEDS: LOVENOX 40 MG SC (16:56)
[2024-06-07] MEDS: SOLU-MEDROL PF 40 MG IV (19:35)
[2024-06-07] MEDS: STERILE WATER FOR INJECTION 10 ML IV (21:00)
[2024-06-07] MEDS: ROCEPHIN 1000 MG IV (21:00)
[2024-06-07 23:00] VITALS: BP 135/81
--- NOTE | 2024-06-08 06:37 | W.PN.PUL3 ---
Addendum entered and electronically signed by Mick Hamilton MD 06/08/24 07:50:
reviewed course. Concern for Cryptogenic pneumonia noted
Will continue will slow pred taper as o/p
decrease by 10 my every 5 days and see pulm pulmonary in 2-3 weeks
Original Note:
Today's Communication / Plan
-
Decrease steroids to 40 mg, slow taper as below
Consider transition to oral antibiotics
Ambulate, assess for home oxygen
Continue albuterol as needed
Will require outpatient pulmonary follow-up. Information left in chart
Disposition efforts
Assessment
-
Assessment: 68-year-old male with PMhx of asthma who presented with weakness, cough and dyspnea on exertion. He was recent diagnosed with pneumonia on 06/03/2024 when he came here to the ER and found to be hypoxic down to 89%. He had been treated
at that time for pneumonia with Augmentin and prednisone but symptoms worsened. CXR at that time showed left lower lobe consolidation, and his WBC was 18.1 with platelets 123 and he was afebrile and hemodynamically stable with saturation 94%. He
was sent home with Levaquin for 7 days after giving Rocephin + azithromycin in the ER. When patient came back to the ER on 06/05, he remained afebrile at 99.2 �F, pulse rate 77, breathing at 18 breaths/min, BP 160/96 and saturating 96% on room air.
Labs showed leukocytosis to 13.2, platelet count 469, sodium 134, glucose 102 with negative RSV. CTA chest showed bibasilar, lingular, and left upper lobe pneumonia. He was given ceftriaxone, Zithromax, IVF with 500 cc bolus of NS 0.9% and
admitted to the hospitalist service. Pulmonary now consulted for additional management/recommendations.
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
Impression:
#Multifocal pneumonia/CAP with suspected preceding viral illness; unable to rule out organized pneumonia given patient continues to have FAN + malaise with procalcitonin <0.05
#Cough + generalized weakness due to above
#Leukocytosis likely due to recent course of steroids � leukocytosis now resolved as of 06/06/2024
#History of mild intermittent asthma
Plan/recommendations
Patient appears to be improved objectively and subjectively
Currently on room air
Chest exam without rhonchi, minimal crackles at base
CT chest reviewed, bibasilar pneumonia. Chronicity unclear
Moving forward
Continue with prednisone, slow taper
Decrease to 40 mg a day
He is feeling much better this morning, chest exam appears to be improved
Would prefer faster taper off steroids. Decrease by 10 mg every 3 days until off
No need for Bactrim prophylaxis
Continue antibiotics for now
Okay to discontinue ceftriaxone at time of discharge, transition to doxycycline oral
Ambulate and assess home oxygen needs
This morning, patient denies any cough
Incentive spirometry, airway clearance
DVT ppx: Ambulate
Pulmonary service will continue to follow along. I will arrange for outpatient follow-up. He needs to obtain repeat imaging with CT chest in about 6 weeks to follow-up pneumonia resolution.
Disposition efforts
Subjective Data
-
Date of Service:
Date of Service: June 08, 2024
Chief Complaint: Pulmonary Follow Up
Subjective:
Patient is without complaints. Denies chest pain, shortness of breath, cough, nausea. Presently on room air
Objective Data
Data Reviewed
Vital Signs / I&O / Oxygen:
Vital Signs
Temp Pulse Resp BP Pulse Ox
98.9 F 65 18 135/81 96
06/07/24 23:00 06/07/24 23:00 06/07/24 23:00 06/07/24 23:00 06/07/24 23:00
Intake and Output
06/06/24 06/07/24 06/08/24
06:59 06:59 06:59
Intake Total 1740 / 1740 2550 / 2550
Balance 1740 / 1740 2550 / 2550
SaO2 96
Physical Exam
General: Comfortable
HEENT: Normocephalic and Anicteric
Cardiovascular: S1-S2, Regular Rhythm, Murmur (n) and Peripheral Edema (Negative)
Respiratory: Wheeze (Negative), Crackles (Minimal at base), Rhonchi (n), Non-Labored Respirations and Stridor (n)
GI: Soft, Non Distended, Non Tender and Normal Bowel Sounds
Neurology: Awake, Alert and No Motor Deficits (Able to sit up without assistance)
Skin: Warm, Dry, Cyanosis (n) and Rash (n)
Labs/Micro/Reports
Microbiology
06/06/24 15:46 Sputum - Induced Gram Stain - Preliminary
06/06/24 06:26 Nose MRSA Screen - Final
No Methicillin Resistant Staphylococcus aureus isolated.
06/05/24 23:03 Sputum Respiratory Culture - Final
06/05/24 23:03 Sputum Gram Stain - Final
06/05/24 22:02 Urine Legionella Urinary Antigen - Final
Negative for Legionella pneumophila Serogroup 1 antigen.
A negative result does not rule out the possiblity of
Legionella infection due to other serogroups or species of
Legionella. Clinical correlation is recommended.
06/05/24 22:02 Urine Streptococcus pneumoniae Antigen (M - Final
Negative for Streptococcus pneumoniae antigen.
A negative result does not exclude infection with
Streptococcus pneumoniae. Clinical correlation is
recommended.
06/05/24 22:05 Nasal Swab Respiratory Syncytial Virus Culture - Final
Negative for Respiratory Syncytial Virus.
A false negative result may be obtained with a specimen
collected early in the acute phase. If symptoms persist, a
new specimen should be tested.
[2024-06-08 07:30] VITALS: BP 140/84
[2024-06-08] MEDS: DELTASONE 40 MG PO (08:13)
[2024-06-08] MEDS: VIBRAMYCIN 100 MG PO (08:13)
[2024-06-08 10:02] LABS: Hematocrit 44.1 % (39.0-52.0); Hemoglobin 15.1 g/dL (13.0-18.0); Mean Corp Hgb Conc. 34.2 g/dL (33.0-37.0); Mean Corpuscular Hgb 31.4 pg (27.0-31.0); Mean Corpuscular Volume 91.7 fL (80.0-94.0); Mean Platelet Volume 9.2 fL (7.4-10.4); Platelet Count 499 10^3/uL (130-400); Red Blood Cell Count 4.81 10^6/uL (4.70-6.10); Red Cell Dist. Width 13.4 % (11.5-14.5); White Blood Cell Count 12.6 10^3/uL (4.8-10.8)
--- NOTE | 2024-06-08 11:08 | W.PN.HOSP.TC ---
Today's Communication/Plan
-
Discharge on oral antibiotics and prolonged prednisone taper
Outpatient pulmonology follow-up
Assessment / Plan
Assessment / Plan
#Cryptogenic organizing pneumonia
#Persistent dyspnea with activity
#Left upper lobe pneumonia on CT
-Was seen and discharged from the ER on 06/03, came back to the ER on 06/05
-Symptoms persist despite a course of Augmentin, and 3 days of Levaquin prior t
-Pulmonology suspecting DYE TANK TENDER/inflammatory pneumonia as etiology
-Was started on steroid with planned prolonged taper at discharge
-Symptomatically improved, on RA this morning and comfortable
-Plan to DC on oral antibiotics to complete 7 days
-Plan to DC on prednisone 40 mg, decrease 10 mg every 5 days
#Lightheadedness with standing
-Orthostatics negative
-May be related to deconditioning versus DYE TANK TENDER
#History of asthma
Has not needed his inhaler
DVT prophylaxis�subcu Lovenox
Full code
Anticipated Discharge: Today
Subjective/Interval History
-
Date of Service: June 08, 2024
No acute events. He was on room air, appeared comfortable, had no acute complaints today. States that he is ready to go home, questions about his medications at discharge which I answered. Family at the bedside.
Objective Data
-
Labs:
Laboratory Results
06/08/24
09:28
WBC 12.6 H
Hgb 15.1
Hct 44.1
Plt Count 499 H
Sodium Pending
Potassium Pending
Chloride Pending
Carbon Dioxide Pending
BUN Pending
Creatinine Pending
Glucose Pending
Calcium Pending
Total Bilirubin Pending
AST Pending
ALT Pending
Alkaline Phosphatase Pending
Vital Signs:
Vital Signs
Temp Pulse Resp BP Pulse Ox
97.8 F 61 20 140/84 99
06/08/24 07:30 06/08/24 07:30 06/08/24 07:30 06/08/24 07:30 06/08/24 07:30
I&O
06/07/24 06/08/24 06/09/24
06:59 06:59 06:59
Intake Total 1740 / 1740 2550 / 2550
Balance 1740 / 1740 2550 / 2550
Review of Systems
-
History Source: Patient
All other systems: Reviewed and negative
Constitutional: Reports No Symptoms
Respiratory: Reports No Symptoms
Cardiac: Reports No Symptoms
Abdomen/GI: Reports No Symptoms
Genitourinary: Reports No Symptoms
Musculoskeletal: Reports No Symptoms
Skin: Reports No Symptoms
Neuro: Reports No Symptoms
Physical Exam
-
General: No Apparent Distress, Comfortable and Conversant
HEENT: Normocephalic, Atraumatic, Moist Mucous Membranes and Anicteric
Respiratory: Clear to Auscultation and Non Labored Respirations; Negative Wheezes, Rales, Rhonchi, Crackles or Accessory Resp Muscle Use
Cardiac: Regular Rhythm and S1/S2; Negative Murmur, Rub, JVD or Gallop
GI: Soft, Nontender, Nondistended and Normal Bowel Sounds
Musculoskeletal: No Clubbing, No Cyanosis and No Edema
Skin: Warm and Dry; Negative Rash or Jaundice
Neuro: AO x 3, Nonfocal/Grossly Intact and Central Nerve's Intact
Data Reviewed
-
Diagnostic Radiology: Report Reviewed by me
Labs: Labs Reviewed by me
--- NOTE | 2024-06-08 11:14 | W.DCSUMMARY ---
Discharge Summary
Discharge Data
Date of Admission: 06/05/24
Date of Discharge: 06/08/24
-
Pending Results: No
Hospital Course
Presented with worsening shortness of breath on exertion. Was recently seen in ED for similar symptoms. Imaging demonstrated left upper lobe opacity concerning for pneumonia, seen at previous ED visit as well. Was treated with outpatient oral
antibiotics without response, transition to IV antibiotics on admission at 06/05/2024. Symptomatically did not improve, pulmonology evaluated and raised suspicion for cryptogenic organizing pneumonia due to radiographic findings and nonresponse to
antibiotics. He was started on steroids with improvement. Was plan to complete 7-day course of antibiotics with prolonged prednisone taper at discharge with pulmonology follow-up in 2 to 3 weeks
Discharge Plan
-
Patient Disposition: Home (Routine Discharge)
Discharge Diagnosis/Procedures: Cryptogenic Organizing Pneumonia
Condition: Good
Diet: No restrictions
Activity: As tolerated
Driving Restrictions: As prior to admission
Referrals:
Inocencio Swanson MD [Family Provider] -
Sohail Curry MD [Active] - in two to three weeks
(full PFTs on day of office visit
MERCHANDISE CLERK or Patricio )
Prescriptions:
New
doxycycline hyclate 100 mg Capsule
100 mg PO Q12 5 Days Qty: 10 0RF
cefdinir 300 mg capsule
300 mg PO Q12H 5 Days Qty: 10 0RF
prednisone 10 mg tablet
10 mg PO DIRECTED Qty: 60 0RF
Rx Instructions:
40 mg (4 tabs) x 5 days, then
30 mg (3 tabs) x 5 days, then
20 mg (2 tabs) x 5 days, then
10 mg (1 tab) x 5 days
Continued
albuterol sulfate 90 mcg/actuation Hfa Aerosol Inhaler
2 puff INHALATION R Q4HPRN PRN (Reason: sob)
Discontinued
levofloxacin 500 mg tablet
500 mg PO DAILY 7 Days Qty: 7 0RF
Discharge Orders:
Discharge Patient (As Directed); Ordered 06/08/24
Ordered By: Micah Matthews
Discharge Date and Time
Print Language: ARABIC
[2024-06-08 11:25] LABS: ALT (SGPT) 48 U/L (0-50); AST (SGOT) 26 U/L (17-59); Albumin 3.5 g/dl (3.5-5.0); Alkaline Phosphatase 127 U/L (38-126); Blood Urea Nitrogen 17 mg/dl (9-20); Calcium 9.3 mg/dl (8.4-10.2); Carbon Dioxide 31 mmol/L (22-30); Chloride 101 mmol/L (98-107); Estimated Creatinine Clearance 105 ml/min; Glucose 109 mg/dl (70-99); Magnesium 2.3 mg/dl (1.6-2.3); Phosphorus 4.1 mg/dl (2.5-4.5); Sodium 137 mmol/L (135-145); Total Bilirubin 0.6 mg/dl (0.2-1.3); Total Protein 6.2 g/dl (6.3-8.2); eGFR > 60.00
[2024-06-08 11:33] LABS: C-Reactive Protein < 5.00 mg/L (0.0-10.00)
[2024-06-08 15:00] VITALS: BP 139/81
--- NOTE | 2024-06-08 16:33 | W.PN.UPDATE ---
Update Note
Progress Note Update
Patient cannot recall details from this morning's visit. Requested to review again with pulmonary. Reviewed with him possibility of steroid responsive process. Reviewed possibility of cryptogenic organizing pneumonia as per Dr. Curry
assessment.
Okay for discharge today. Will continue with slow taper of steroids.
Prefer to see patient sooner during his taper rather than later in the setting of a prolonged taper to confirm he is moving the right direction
Recommended GERD therapy while on steroids
Hopefully we can avoid PJP prophylaxis but will reassess in the next few weeks
Will require follow-up imaging
Follow-up information left in chart. All questions answered
Okay for discharge. Reviewed with nursing as well
[2024-06-08 20:32] LABS: Hepatitis C Antibody Negative (Negative)
== END 2024-06-08 18:00 | disposition home or self-care (01) ==
LOC: 3 WEST ACU 22:50
PROVIDERS: Clinical Nurse Specialist Family Health; Family Medicine; ADMITTING PHYSICIAN Hospitalist; ATTENDING PHYSICIAN Internal Medicine; CONSULT PHYSICIAN Internal Medicine Critical Care Medicine; EMERGENCY PHYSICIAN Emergency Medicine; FAMILY PHYSICIAN Family Medicine
DX: J84.116 Cryptogenic organizing pneumonia (principal); R06.02 Shortness of breath; J45.20 Mild intermittent asthma, uncomplicated; R05.9 Cough, unspecified; R53.83 Other fatigue; R53.1 Weakness; D72.829 Elevated white blood cell count, unspecified; R06.09 Other forms of dyspnea; R09.02 Hypoxemia; R51.9 Headache, unspecified; R42 Dizziness and giddiness; Z88.5 Allergy status to narcotic agent; Z90.49 Acquired absence of other specified parts of digestive tract; Z82.49 Family history of ischemic heart disease and other diseases of the circulatory system; Z80.42 Family history of malignant neoplasm of prostate; Z79.52 Long term (current) use of systemic steroids; Z11.52 Encounter for screening for COVID-19
CPT/HCPCS: 71275; 80048; 80053; 83735; 84100; 84145; 85025; 85027; 86140; 86803; 87070; 87205; 87449; 87807; 87811; 87899; 93005; 94640; 96365; 97161; 97165; 99285; Q9967

== ENCOUNTER → 2024-07-23 10:00 | Outpatient (REF) | payer MEDICARE, OTHER, SELFPAY | LOC: RAD 10:00 | PROVIDERS: ATTENDING PHYSICIAN Nurse Practitioner Family; FAMILY PHYSICIAN Family Medicine | DX: J84.116 Cryptogenic organizing pneumonia (principal) | CPT/HCPCS: 71250 ==

== ENCOUNTER → 2024-08-06 12:50 | Outpatient (REF) | payer MEDICARE, OTHER, SELFPAY | LOC: RCS 12:50 | PROVIDERS: ATTENDING PHYSICIAN Internal Medicine Cardiovascular Disease; FAMILY PHYSICIAN Family Medicine | DX: R07.2 Precordial pain (principal) | CPT/HCPCS: 93017; 93350 ==

== ENCOUNTER → 2024-08-12 09:08 | Outpatient (REF) | payer MEDICARE, OTHER, SELFPAY | LOC: RCS 09:08 | PROVIDERS: ATTENDING PHYSICIAN Internal Medicine Cardiovascular Disease; FAMILY PHYSICIAN Family Medicine | DX: R07.2 Precordial pain (principal); Z82.79 Family history of other congenital malformations, deformations and chromosomal abnormalities | CPT/HCPCS: 93306 ==

== ENCOUNTER → 2024-09-07 10:04 | Outpatient (REF) | payer MEDICARE, OTHER, SELFPAY | LOC: RAD 10:04 | PROVIDERS: ATTENDING PHYSICIAN Family Medicine | DX: R06.02 Shortness of breath (principal) | CPT/HCPCS: 71046 ==

== ENCOUNTER → 2024-09-18 15:18 | Outpatient (REF) | payer MEDICARE, OTHER, SELFPAY | LOC: HWRAD 15:18 | PROVIDERS: ATTENDING PHYSICIAN Nurse Practitioner Family; FAMILY PHYSICIAN Family Medicine; REFERRING PHYSICIAN Internal Medicine Critical Care Medicine | DX: J84.116 Cryptogenic organizing pneumonia (principal); R91.1 Solitary pulmonary nodule | CPT/HCPCS: 71250 ==

== ENCOUNTER → 2025-08-02 09:49 | Outpatient (REF) | payer MEDICARE, OTHER, SELFPAY | LOC: HWRAD 09:49 | PROVIDERS: ATTENDING PHYSICIAN Internal Medicine Critical Care Medicine; FAMILY PHYSICIAN Family Medicine | DX: J84.116 Cryptogenic organizing pneumonia (principal); R91.1 Solitary pulmonary nodule | CPT/HCPCS: 71250 ==